=== PATIENT | male | born 1950 | race Caucasian/White ===

== ENCOUNTER 2017-06-29 13:11 | Day surgery (SDC) | payer BC ==
[~2017-06-29] VITALS: Ht 180.3 cm; Wt 93.7 kg
[~2017-06-29 13:11] MED LIST: ADAL40PEN INJ; AMIT50 PO; ASPI81CH PO; AZATHIOPRINE; CETI10; CLOP75 PO; ESOM20 PO; LEVFLO500; Levaquin750 MG PO; MESA400ER; METO25ER PO; METR500; NAC600 MG PO; OMEP20ER; PARO10 PO; PRAV20 PO; PRED20; [UNRECOGNIZED DRUG - OTHER]; [UNRECOGNIZED DRUG - OTHER]
== END 2017-06-29 15:41 | disposition home or self-care (01) ==
LOC: ORSCSDS 13:11
PROVIDERS: Internal Medicine Gastroenterology
PROC: 0DBH8ZX Excision of Cecum, Via Natural or Artificial Opening Endoscopic, Diagnostic (ICD-10-PCS; principal; 2017-06-29 14:30)
PROC: 0DBE8ZX Excision of Large Intestine, Via Natural or Artificial Opening Endoscopic, Diagnostic (ICD-10-PCS; principal; 2017-06-29 14:30)
DX: K51.90 Ulcerative colitis, unspecified, without complications (principal); K62.5 Hemorrhage of anus and rectum; R19.7 Diarrhea, unspecified; D12.0 Benign neoplasm of cecum; K64.8 Other hemorrhoids; K57.30 Diverticulosis of large intestine without perforation or abscess without bleeding; I10 Essential (primary) hypertension; E78.5 Hyperlipidemia, unspecified; I25.10 Atherosclerotic heart disease of native coronary artery without angina pectoris; G47.33 Obstructive sleep apnea (adult) (pediatric); Z87.891 Personal history of nicotine dependence; Z79.899 Other long term (current) drug therapy
CPT/HCPCS: 88305

== ENCOUNTER → 2017-07-29 | Outpatient (CLI) | payer BC | END | disposition home or self-care (01) | LOC: LAB SHORT 08:21 → PLD 08:21 | DX: D48.5 Neoplasm of uncertain behavior of skin (principal) | CPT/HCPCS: 88305 ==

== ENCOUNTER → 2020-05-17 | Outpatient (CLI) | payer MEDICARE | END | disposition home or self-care (01) | LOC: LAB SHORT 11:57 → PLD 11:57 | DX: L82.1 Other seborrheic keratosis (principal); L57.0 Actinic keratosis | CPT/HCPCS: 88305 ==

== ENCOUNTER 2020-09-24 12:15 | Day surgery (SDC) | payer MEDICARE ==
[~2020-09-24] VITALS: Ht 180.3 cm; Wt 102.4 kg
[~2020-09-24 12:15] MED LIST changes: +OMEP20ER PO
[2020-09-24] MEDS ORDERED: ATOR40TA PO (12:35)
[2020-09-24] MEDS ORDERED: VITAMIN D325 MC3 PO (12:36)
[2020-09-24] MEDS ORDERED: CLON1 PO (12:36)
[2020-09-24] MEDS ORDERED: NITR.4SL SL (12:37)
[2020-09-24] MEDS ORDERED: MELA3 PO (12:37)
[2020-09-24] MEDS ORDERED: Norco 5-325 Ta1 EACH PO (12:37)
[2020-09-24] MEDS ORDERED: GABA100 PO (12:38)
[2020-09-24] MEDS ORDERED: BACL10 PO (12:38)
[2020-09-24] MEDS ORDERED: ALBU90OI INH (12:38)
[2020-09-24] MEDS ORDERED: MIRAPEX0.25 MG PO (12:38)
== END 2020-09-24 13:54 | disposition home or self-care (01) ==
LOC: ORSCSDS 12:15
PROVIDERS: Internal Medicine Gastroenterology
PROC: 0DBE8ZX Excision of Large Intestine, Via Natural or Artificial Opening Endoscopic, Diagnostic (ICD-10-PCS; principal; 2020-09-24 13:15)
PROC: 0DBP8ZX Excision of Rectum, Via Natural or Artificial Opening Endoscopic, Diagnostic (ICD-10-PCS; principal; 2020-09-24 13:15)
PROC: 0DBL8ZX Excision of Transverse Colon, Via Natural or Artificial Opening Endoscopic, Diagnostic (ICD-10-PCS; principal; 2020-09-24 13:15)
DX: K51.90 Ulcerative colitis, unspecified, without complications (principal); D12.3 Benign neoplasm of transverse colon; R19.4 Change in bowel habit; J44.9 Chronic obstructive pulmonary disease, unspecified; Z79.02 Long term (current) use of antithrombotics/antiplatelets; Z87.891 Personal history of nicotine dependence; K21.9 Gastro-esophageal reflux disease without esophagitis; Z79.899 Other long term (current) drug therapy; I10 Essential (primary) hypertension; I25.10 Atherosclerotic heart disease of native coronary artery without angina pectoris; E78.5 Hyperlipidemia, unspecified; G47.33 Obstructive sleep apnea (adult) (pediatric)
CPT/HCPCS: 88305; J2704; J7120

== ENCOUNTER → 2021-01-14 | Outpatient (CLI) | payer MEDICARE ==
[~2021-01-14] MED LIST changes: +ALBU90OI INH; +ATOR40TA PO; +BACL10 PO; +CLON1 PO; +GABA100 PO; +MELA3 PO; +MIRAPEX0.25 MG PO; +NITR.4SL SL; +Norco 5-325 Ta1 EACH PO; +VITAMIN D325 MC3 PO
== END | disposition home or self-care (01) ==
LOC: LAB SHORT 16:40 → LAB 16:40
DX: K51.90 Ulcerative colitis, unspecified, without complications (principal)
CPT/HCPCS: 83993

== ENCOUNTER 2023-01-27 12:49 | Day surgery (SDC) | payer MEDICARE ==
[~2023-01-27] VITALS: Ht 177.8 cm; Wt 103.0 kg
--- NOTE | 2023-01-27 13:20 | NUR ---
01/27/23 1320 Melissa Martinez CALL LIGHT WITHIN REACH. TETRACAINE IN LEFT EYE AT 1314 AND PLEDGETT IN AT 1315
[2023-01-27 14:39] VITALS: BP 137/79
--- NOTE | 2023-01-27 14:43 | NUR ---
01/27/23 1443 Mary Kemp IV REMOVED, CANNULA INTACT PT TOLERATED WELL. PT DENIES NAUSEA AND PAIN AT THIS TIME. IV SITE WNL
== END 2023-01-27 14:52 | disposition home or self-care (01) ==
LOC: ORSCSDS 12:49
PROVIDERS: Ophthalmology
PROC: 08RK3JZ Replacement of Left Lens with Synthetic Substitute, Percutaneous Approach (ICD-10-PCS; principal; 2023-01-27 14:00)
DX: H25.13 Age-related nuclear cataract, bilateral (principal); H52.202 Unspecified astigmatism, left eye; I10 Essential (primary) hypertension; I25.10 Atherosclerotic heart disease of native coronary artery without angina pectoris; G47.33 Obstructive sleep apnea (adult) (pediatric); K21.9 Gastro-esophageal reflux disease without esophagitis; Z87.891 Personal history of nicotine dependence; E78.00 Pure hypercholesterolemia, unspecified; Z79.02 Long term (current) use of antithrombotics/antiplatelets; Z79.899 Other long term (current) drug therapy
CPT/HCPCS: J2250; J3010; J3301; J7040; V2632

== ENCOUNTER 2023-02-03 13:36 | Day surgery (SDC) | payer MEDICARE ==
[~2023-02-03] VITALS: Ht 180.3 cm; Wt 101.2 kg
--- NOTE | 2023-02-03 15:21 | NUR ---
02/03/23 1521 LEONORA HINTON REPEAT BP. CUFF SLIPPED DOWN PER PT.
[2023-02-03 15:23] VITALS: BP 116/70
== END 2023-02-03 15:38 | disposition home or self-care (01) ==
LOC: ORSCSDS 13:36
PROVIDERS: Ophthalmology
PROC: 08RJ3JZ Replacement of Right Lens with Synthetic Substitute, Percutaneous Approach (ICD-10-PCS; principal; 2023-02-03 15:00)
DX: H25.11 Age-related nuclear cataract, right eye (principal); Z96.1 Presence of intraocular lens; G47.33 Obstructive sleep apnea (adult) (pediatric); I10 Essential (primary) hypertension; Z87.891 Personal history of nicotine dependence; Z79.02 Long term (current) use of antithrombotics/antiplatelets; Z79.899 Other long term (current) drug therapy
CPT/HCPCS: J2250; J3010; J3301; J7040; V2632

== ENCOUNTER 2025-04-11 08:19 | Day surgery (SDC) | payer MEDICARE ==
[~2025-04-11] VITALS: Ht 177.8 cm; Wt 91.4 kg
[2025-04-11] MEDS ORDERED: HYOS0.375T PO (08:47)
[2025-04-11] MEDS ORDERED: OMEP20ER PO (08:48)
[2025-04-11] MEDS ORDERED: Isosorbide Mono30 MG PO (08:49)
[2025-04-11 10:25] VITALS: BP 105/65
== END 2025-04-11 10:32 | disposition home or self-care (01) ==
LOC: ORSCSDS 08:19
PROVIDERS: Internal Medicine Gastroenterology
PROC: 0DBL8ZX Excision of Transverse Colon, Via Natural or Artificial Opening Endoscopic, Diagnostic (ICD-10-PCS; principal; 2025-04-11 09:45)
PROC: 0DBK8ZX Excision of Ascending Colon, Via Natural or Artificial Opening Endoscopic, Diagnostic (ICD-10-PCS; principal; 2025-04-11 09:45)
DX: K51.90 Ulcerative colitis, unspecified, without complications (principal); D12.2 Benign neoplasm of ascending colon; K57.30 Diverticulosis of large intestine without perforation or abscess without bleeding; Z86.0101 Personal history of adenomatous and serrated colon polyps; Z80.0 Family history of malignant neoplasm of digestive organs; I25.10 Atherosclerotic heart disease of native coronary artery without angina pectoris; Z79.02 Long term (current) use of antithrombotics/antiplatelets; Z79.899 Other long term (current) drug therapy; I12.9 Hypertensive chronic kidney disease with stage 1 through stage 4 chronic kidney disease, or unspecified chronic kidney disease; N18.30 Chronic kidney disease, stage 3 unspecified; K21.9 Gastro-esophageal reflux disease without esophagitis; G47.30 Sleep apnea, unspecified; E78.5 Hyperlipidemia, unspecified; Z87.891 Personal history of nicotine dependence
CPT/HCPCS: 88305; J2704; J7120

== ENCOUNTER → 2025-05-05 | Outpatient (CLI) | payer MEDICARE ==
[~2025-05-05] MED LIST changes: +HYOS0.375T PO; +Isosorbide Mono30 MG PO
[2025-05-07 16:42] LABS: CALPROTECTIN,FECAL 545 ug/g (<=49)
== END ==
LOC: LAB 09:00 → LAB SHORT 09:00 → LAB FUT 04-26 12:10
PROVIDERS: Nurse Practitioner Family
DX: K51.90 Ulcerative colitis, unspecified, without complications (principal)
CPT/HCPCS: 83993